=== PATIENT | female | born 1960 | race Caucasian/White ===

== ENCOUNTER 2018-09-07 20:16 | Emergency (ER) | payer SELFPAY ==
[2018-09-07 21:03] LABS: ABSOLUTE BASOPHILS # (AUTO) 0.1 10^3/uL (0.0-0.2); ABSOLUTE EOSINOPHILS # (AUTO) 0.1 10^3/uL (0.0-0.6); ABSOLUTE LYMPHOCYTES (AUTO) 2.1 10^3/uL (0.5-4.7); ABSOLUTE MONOCYTES (AUTO) 0.9 10^3/uL (0.1-1.4); ABSOLUTE NEUT (AUTO) 7.2 10^3/uL (1.7-8.2); BASOPHILS % (AUTO) 0.5 % (0-2); EOSINOPHILS % (AUTO) 0.9 % (0-6); HEMATOCRIT 41.3 % (36.0-47.0); HEMOGLOBIN 14.2 g/dL (12.0-15.5); LYMPHOCYTES % (AUTO) 20.5 % (13-45); MEAN CORPUSCULAR HEMOGLOBIN 31.9 pg (27.0-33.4); MEAN CORPUSCULAR HGB CONC 34.3 g/dL (32.0-36.0); MEAN CORPUSCULAR VOLUME 93 fl (80-97); MONOCYTES % (AUTO) 8.5 % (3-13); PLATELET COUNT 307 10^3/uL (150-450); RED BLOOD COUNT 4.45 10^6/uL (3.72-5.28); RED CELL DISTRIBUTION WIDTH 14.3 % (11.5-14.0); SEGMENTED NEUTROPHILS % (AUTO) 69.6 % (42-78); TOTAL CELLS COUNTED % (AUTO) 100 %; WHITE BLOOD COUNT 10.4 10^3/uL (4.0-10.5)
[2018-09-07 21:21] LABS: ALANINE AMINOTRANSFERASE 20 U/L (9-52); ALBUMIN 4.1 g/dL (3.5-5.0); ALKALINE PHOSPHATASE 60 U/L (38-126); ANION GAP 15 (5-19); ASPARTATE AMINO TRANSFERASE 22 U/L (14-36); BILIRUBIN,DIRECT 0.2 mg/dL (0.0-0.4); BILIRUBIN,TOTAL 0.2 mg/dL (0.2-1.3); BLOOD UREA NITROGEN 15 mg/dL (7-20); CALCIUM 9.2 mg/dL (8.4-10.2); CARBON DIOXIDE 26 mmol/L (22-30); CHLORIDE 98 mmol/L (98-107); GLUCOSE 86 mg/dL (75-110); LIPASE 256.2 U/L (23-300); POTASSIUM 4.5 mmol/L (3.6-5.0); SODIUM 139.4 mmol/L (137-145); TOTAL PROTEIN 6.6 g/dL (6.3-8.2)
[2018-09-07] MEDS ORDERED: HYOSCYAMINE SULFATE 0.125 MG TABLET PO ONE (22:04)
--- NOTE | 2018-09-07 22:05 | ER Document Report ---
ED General - General Chief Complaint: Abdominal Pain Stated Complaint: ABDOMINAL PAIN Time Seen by Provider: 09/07/18 20:41 Notes: Patient is a 58-year-old female with a past medical history of opiate dependence for chronic low back pain who presents with 12 hours of intermittent generalized abdominal cramping, one episode of vomiting, and 5 days of not having a bowel movement. She does report that she continues to pass flatus. She reports that she has been able to tolerate oral intake even after the single episode of vomiting. Denies any feculent vomiting. She states that the pain comes in waves and when it is present that it is a severe, cramping, generalized abdominal pain. Nothing seems to trigger the pain and it does resolve spontaneously. She is uncertain of whether or not she has ever had similar symptoms in the past. She has not contacted her general doctor regarding today's concerns. She denies any associated fever or constitutional symptoms. Only prior abdominal surgical history is a . She denies any current pain at the time my assessment. Patient's does report that today she had a syncopal episode while trying to have a bowel movement. Patient denies any history of cardiac disease. Denies any current chest pain or shortness of breath. States that she has had syncope many times in the past when attempting to have bowel movements or from pain. TRAVEL OUTSIDE OF THE [place] IN LAST 30 DAYS: No - Related Data Allergies/Adverse Reactions: No Known Allergies Allergy (Unverified 09/07/18 20:25) Past Medical History - General Information source: Patient, Relative - Social History Smoking Status: Current Every Day Smoker Frequency of alcohol use: Occasional Drug Abuse: None Lives with: Spouse/Significant other Family History: Reviewed & Not Pertinent Patient has suicidal ideation: No Patient has homicidal ideation: No - Past Medical History Cardiac Medical History: Reports: Hx Hypertension Renal/ Medical History: Denies: Hx Peritoneal Dialysis Past Surgical History: Reports: Hx Section, Hx Tonsillectomy Review of Systems - Review of Systems Notes: Constitutional: Negative for fever. HENT: Negative for sore throat. Eyes: Negative for visual changes. Cardiovascular: Negative for chest pain. Respiratory: Negative for shortness of breath. Gastrointestinal: Positive for abdominal pain, constipation and vomiting Genitourinary: Negative for dysuria. Musculoskeletal: Negative for back pain. Skin: Negative for rash. Neurological: Negative for headaches, weakness or numbness. 10 point ROS negative except as marked above and in HPI. Physical Exam - Vital signs Vitals: Pulse 94 09/07/18 20:21 Interpretation: Normal Notes: PHYSICAL EXAMINATION: GENERAL: Well-appearing, well-nourished and in no acute distress. HEAD: Atraumatic, normocephalic. EYES: Pupils equal round and reactive to light, extraocular movements intact, sclera anicteric, conjunctiva are normal. ENT: nares patent, oropharynx clear without exudates. Moderately dry mucous membranes. NECK: Normal range of motion, supple without lymphadenopathy LUNGS: Breath sounds clear to auscultation bilaterally and equal. No wheezes rales or rhonchi. HEART: Regular rate and rhythm without murmurs ABDOMEN: Soft, nontender, normoactive bowel sounds. No guarding, no rebound. No masses appreciated. EXTREMITIES: Normal range of motion, no pitting or edema. No cyanosis. NEUROLOGICAL: No focal neurological deficits. Moves all extremities spontaneously and on command. PSYCH: Normal mood, normal affect. SKIN: Warm, Dry, normal turgor, no rashes or lesions noted. Course - Re-evaluation Re-evalutation: 09/07/18 22:04 Patient presents with generalized abdominal pain with associated intermittent periods of waves of spasming pain. She has had one episode of vomiting today. Apparently she did have a episode of syncope while trying to have a bowel movement earlier which appears to be consistent with a vasovagal syncope. Troponin and EKG unremarkable. Labs are broadly unremarkable. Patient is on chronic pain management with narcotic therapy. She has not had a bowel movement in over [address] abdomen pelvis given the patient's report of associated syncope as well as having minimal flatus today to further exclude an acute bowel obstruction. Anticipate that patient most likely has severe constipation secondary to opiates. 09/07/18 22:[address] scan. Is agreeable to a 2 view of the abdomen. We will proceed with a 2 view of the abdomen. 09/07/18 23:40 2 view the abdomen shows possible ileus likely secondary to patient's opiate use. The patient has tolerated oral intake without difficulty here. Is, currently resting very comfortably. Continues to state that she would like to avoid a CT due to the risk of radiation and her low suspicion for anything being seriously wrong with her. She understands that we could be missing a possibly serious diagnosis. She verbalizes understanding of the risks of this. I have advised that she is to return to the emergency department immediately if she has worsening of her abdominal pain, persistent vomiting, develops a fever, has failure of her symptoms resolved, or has any other symptoms that are concerning. She is to follow-up with her primary care doctor for an abdominal recheck within the next 24-48 hours. - Vital Signs Vital signs: Temp Pulse Resp BP Pulse Ox 98.4 F 84 18 110/76 99 09/08/18 00:03 09/08/18 00:04 09/08/18 00:04 09/08/18 00:04 09/08/18 00:04 - Laboratory Result Diagrams: 09/07/18 20:55 09/07/18 20:55 Laboratory results interpreted by me: 09/07/18 20:55 RDW 14.3 H - Diagnostic Test Radiology reviewed: Image reviewed, Reports reviewed Radiology results interpreted by me: 09/07/18 23:42 2 view abdomen: Heavy colonic stool burden, possible ileus pattern Discharge - Discharge Clinical Impression: Generalized abdominal pain Constipation Qualifiers: Constipation type: drug induced constipation Qualified Code(s): K59.03 - Drug induced constipation Condition: Good Disposition: HOME, SELF-CARE Additional Instructions: As we discussed today, your symptoms are likely related to constipation and use of opiate therapy. You need to follow-up with your primary care doctor within the next 24 hours for recheck of your abdomen. Please return to the emergency permit immediately he developed fever of greater than 100.4 F, worsening abdominal pain, failure pain to improve, persistent vomiting, or any other symptoms that are worrisome to you. For your constipation: You should take 8 caps of MiraLAX and placed in 1 liter of Gatorade. Drink one half of the solution and wait 4 hours. If you do not have a bowel movement take the remaining half of the solution. Prescriptions: Hyoscyamine Sulfate [Levsin 0.125 Tablet] 0.125 mg PO TID PRN #30 tablet PRN Reason: Referrals: LAUREL AYON, OSIRISC [Primary Care Provider] - Follow up tomorrow
--- NOTE | 2018-09-07 22:42 | RADIOLOGY REPORT (SQ) ---
EXAM DESCRIPTION: XR ABDOMEN 2 VIEWS SUPINE ERECT COMPLETED DATE/TME: 09/07/2018 22:10 CLINICAL HISTORY: 58 years, Female, eval obstruction COMPARISON: None. NUMBER OF VIEWS: 2 TECHNIQUE: Supine and erect views of the abdomen LIMITATIONS: None. FINDINGS: The bowel gas pattern is nonspecific. Nondilated air-fluid levels are present. Levoconvex scoliosis of the lumbar spine. No free air under the hemidiaphragms. Osteopenia IMPRESSION: Nonspecific bowel gas pattern. A few air-fluid levels could reflect mild ileus 2010 [employer]- All Rights Reserved
[2018-09-07] MEDS ORDERED: HYOSCYAMINE SULFATE 0.125 MG TABLET ONE (22:55)
[2018-09-07] MEDS ORDERED: LACTULOSE SYRUP 20 GM/30 ML UDCUP PO ONE (23:25)
[2018-09-08 00:05] VITALS: BP 110/76
== END 2018-09-08 00:04 | disposition home or self-care (01) ==
LOC: ER 20:16
DX: K59.03 Drug induced constipation (principal); R10.84 Generalized abdominal pain; R11.10 Vomiting, unspecified; R55 Syncope and collapse; F17.200 Nicotine dependence, unspecified, uncomplicated; G89.29 Other chronic pain; M54.5 Low back pain; I10 Essential (primary) hypertension
CPT/HCPCS: 99284; 36415; 83690; 85025; 80053; 84484; 74019; J3490

== ENCOUNTER 2019-10-01 13:35 | Emergency (ER) | payer MEDICAID ==
[2019-10-01 13:54] LABS: ABSOLUTE EOSINOPHILS # (AUTO) 0.1 10^3/uL (0.0-0.6); ABSOLUTE LYMPHOCYTES (AUTO) 1.6 10^3/uL (0.5-4.7); ABSOLUTE MONOCYTES (AUTO) 0.2 10^3/uL (0.1-1.4); ABSOLUTE NEUT (AUTO) 1.3 10^3/uL (1.7-8.2); BASOPHILS % (AUTO) 0.8 % (0-2); EOSINOPHILS % (AUTO) 2.5 % (0-6); HEMATOCRIT 41.3 % (36.0-47.0); HEMOGLOBIN 14.1 g/dL (12.0-15.5); MEAN CORPUSCULAR HEMOGLOBIN 31.4 pg (27.0-33.4); MEAN CORPUSCULAR HGB CONC 34.2 g/dL (32.0-36.0); MEAN CORPUSCULAR VOLUME 92 fl (80-97); MONOCYTES % (AUTO) 7.4 % (3-13); PLATELET COUNT 308 10^3/uL (150-450); RED BLOOD COUNT 4.49 10^6/uL (3.72-5.28); SEGMENTED NEUTROPHILS % (AUTO) 40.3 % (42-78); TOTAL CELLS COUNTED % (AUTO) 100 %; WHITE BLOOD COUNT 3.3 10^3/uL (4.0-10.5)
[2019-10-01 14:16] LABS: ALBUMIN 4.5 g/dL (3.5-5.0); ALKALINE PHOSPHATASE 88 U/L (38-126); ANION GAP 14 (5-19); ASPARTATE AMINO TRANSFERASE 24 U/L (14-36); BILIRUBIN,DIRECT 0.2 mg/dL (0.0-0.4); BILIRUBIN,TOTAL 0.3 mg/dL (0.2-1.3); BLOOD UREA NITROGEN 7 mg/dL (7-20); CALCIUM 9.8 mg/dL (8.4-10.2); CARBON DIOXIDE 28 mmol/L (22-30); CHLORIDE 97 mmol/L (98-107); CREATINE KINASE 63 U/L (30-135); GLUCOSE 144 mg/dL (75-110); POTASSIUM 3.8 mmol/L (3.6-5.0); TOTAL PROTEIN 7.7 g/dL (6.3-8.2)
[2019-10-01 14:24] LABS: CREATINE KINASE MB 0.47 ng/mL (<4.55)
[2019-10-01 14:24] LABS: APPEARANCE,URINE CLEAR; BILIRUBIN,URINE NEGATIVE (NEGATIVE); COLOR,URINE YELLOW; GLUCOSE, URINE NEGATIVE (NEGATIVE); KETONES,URINE NEGATIVE (NEGATIVE); LEUKOCYTE ESTERASE,URINE NEGATIVE (NEGATIVE); NITRITE,URINE NEGATIVE (NEGATIVE); PROTEIN,URINE NEGATIVE (NEGATIVE); URINE SPECIFIC GRAVITY 1.006; UROBILINOGEN,URINE NEGATIVE mg/dL (<2.0)
[2019-10-01 14:27] LABS: TROPONIN I < 0.012 ng/mL
--- NOTE | 2019-10-01 14:40 | RADIOLOGY REPORT (SQ) ---
EXAM DESCRIPTION: CHEST SINGLE VIEW COMPLETED DATE/TIME: 10/01/2019 2:22 pm REASON FOR STUDY: chest pain COMPARISON: None. EXAM PARAMETERS: NUMBER OF VIEWS: One view. TECHNIQUE: Single frontal radiographic view of the chest acquired. RADIATION DOSE: NA LIMITATIONS: Portable film, slightly rotated toward the HANEY position FINDINGS: LUNGS AND PLEURA: No opacities, masses or pneumothorax. No pleural effusion. MEDIASTINUM AND HILAR STRUCTURES: No masses. Contour normal. HEART AND VASCULAR STRUCTURES: Heart normal in size. Normal vasculature. BONES: No acute findings. HARDWARE: None in the chest. OTHER: No other significant finding. IMPRESSION: NO ACUTE RADIOGRAPHIC FINDING IN THE CHEST. TECHNICAL DOCUMENTATION: JOB ID: [id number] [employer]- All Rights Reserved Reading location - IP/workstation name: [email or web address]
[2019-10-01 15:18] LABS: URINE AMPHETAMINES SCREEN NEGATIVE; URINE BARBITURATES SCREEN NEGATIVE; URINE BENZODIAZEPINES SCREEN NEGATIVE; URINE COCAINE SCREEN NEGATIVE; URINE MARIJUANA (THC) SCREEN NEGATIVE; URINE METHADONE SCREEN NEGATIVE; URINE PHENCYCLIDINE SCREEN NEGATIVE
[2019-10-01] MEDS ORDERED: NITROGLYCERIN 0.4 MG/TAB 25 TAB/BOTTLE SL PRN (15:21)
[2019-10-01] MEDS ORDERED: LORAZEPAM 0.5 MG TABLET PO ONE (15:21)
--- NOTE | 2019-10-01 17:48 | EKG REPORT ---
SEVERITY:- BORDERLINE ECG - SINUS RHYTHM PROBABLE LEFT ATRIAL ABNORMALITY BORDERLINE T ABNORMALITIES, ANT-LAT LEADS : Confirmed by: Chalino Ribeiro MD 01-Oct-2019 17:47:11
--- NOTE | 2019-10-01 18:56 | ER Document Report ---
ED General - General Chief Complaint: Chest Pain Stated Complaint: CHEST PAIN Primary Care Provider: LAUREL AYON FNP-C [Primary Care Provider] - Follow up as needed TRAVEL OUTSIDE OF THE [place] IN LAST 30 DAYS: No - HPI Notes: Nurses asked me to see patient when she was roomed in bed 10 in the ED, to ensure she was stable and had appropriate work-up and management started. She tells me she had onset of pain hours ago in the middle of her chest with feeling like she is breathing very fast and sensing a fast heart rate. She seemed to be getting better after she took 325 of aspirin earlier today, but it came back while she was at rest so she called EMS and then took 325 of aspirin again before they arrived. This morning and then again before EMS arrived she said. She tells me she has no history of DM, kidney disease, heart attack, or heart failure, or surgeries for her heart or lungs. She says they did not give her any other medicines and the ambulance. Tells me she has never been a smoker, has never used cocaine or methamphetamines or drug or history of those drugs. Denies alcohol use. Says she has been taking her 1 medication for high blood pressure without any lapses, and took it today earlier. She tells me she has not had any fevers or chills or sweats no vomiting, no (n ear) passing out. She has been eating okay. No trouble swallowing. - Related Data Allergies/Adverse Reactions: No Known Allergies Allergy (Unverified 09/07/18 20:25) Home Medications: lisinopril. oxycodone Past Medical History - General Information source: Patient - Social History Smoking Status: Never Smoker Frequency of alcohol use: None Drug Abuse: None Family History: Other - Did not ask this question in initial interview with patient, and was unable to before she eloped prior to final disposition. Patient has suicidal ideation: No Patient has homicidal ideation: No - Past Medical History Cardiac Medical History: Reports: Hx Hypertension Renal/ Medical History: Denies: Hx Peritoneal Dialysis Past Surgical History: Reports: Hx Section, Hx Tonsillectomy Review of Systems - Review of Systems Constitutional: See HPI, Other - Beyond the above negative constitutional ROS did not perform any further ROS prior to patient eloping before I talked to her again after initially interviewing. denies: Chills, Fever EENT: Other - Did not perform an ENT ROS prior to patient eloping before I talked to her again after initially interviewing patient. denies: Throat pain, Difficulty swallowing Cardiovascular: See HPI, Chest pain, Palpitations, Heart racing, Dyspnea. padmini es: Orthopnea, Syncope, Paroxysmal Nocturnal Dysp Respiratory: Other - besides pertinent negatives noted here I obtained initially, but see did not perform a complete respiratory ROS prior to patient eloping before I talked to her again after initially interviewing. denies: Hurts to breathe, Hemoptysis, Sputum Gastrointestinal: Other - Other than above pertinent negatives initially obtained, did not perform a complete GI ROS prior to patient eloping before I talked to her again after initially interviewing. denies: Abdominal pain, Nausea, Vomiting, Poor appetite, Poor fluid intake Genitourinary: Other - Did not perform a ROS prior to patient eloping before I talked to her again after initially interviewing Female Genitourinary: Other - Did not perform a ROS prior to patient eloping before I talked to her again after initially interviewing Musculoskeletal: Other - Did not perform a MSK ROS prior to patient eloping before I talked to her again after initially interviewing Skin: Other - Did not perform a skin ROS prior to patient eloping before I talked to her again after initially interviewing Hematologic/Lymphatic: Other - Did not evaluate if she required and therefore did not perform a heme ROS prior to patient eloping before I talked to her again after initially interviewing Neurological/Psychological: Other - Did not perform a full neuro ROS prior to patient eloping before I talked to her again after initially interviewing Physical Exam - Vital signs Interpretation: Normal, Tachycardic - 111 regular on monitor. No: Hypotensive, Hypoxic, Tachypneic - Notes Notes: Patient was talking to me in full sentences on room air she had no hypoxia but was mildly tachycardic 111 but did not have any respiratory distress. - General General appearance: Alert, Anxious In distress: None - HEENT Head: Normocephalic, Atraumatic Eyes: Normal. No: Pale conjunctiva, Scleral icterus Conjunctiva: No: Injected Extraocular movements intact: Yes Eyelashes: Normal Pupils: PERRL Nasal: No: Bloody discharge, Marimar deformity, Ecchymosis, Swelling, Clear rhinorrhea Mouth/Lips: No: Laceration, Lesions Mucous membranes: Dry Pharynx: No: Erythema, Exudate, Tonsillar hypertrophy, Uvular edema Neck: Supple. No: Meningismus, Neck mass - Respiratory Respiratory status: No respiratory distress. No: Agonal respirations, Cyanosis, Depressed respirations, Labored, Pursed lip breathing, Retractions, Tachypnea, Tripod position Chest status: Tender. No: Ecchymosis, Pain with deep breathing, Wounds, Accessory muscle use, Prolonged expirations, Splinting Breath sounds: Normal. No: Decreased air movement - Auscultated bilateral posterior and upper lung barnett symmetric good movement of air and no W/R/R or focality of any absence or decreased breath sounds. Chest palpation: Normal. No: Ecchymosis, Wounds - Cardiovascular Rhythm: Tachycardia. No: Irregularly irregular, Extrasystoles Heart sounds: Normal auscultation - Quite precordium Murmur: No Pulses: Normal: Radial - All EXT WWP X4 Normal capillary refill: No - Abdominal Inspection: Normal. No: Caput medussa, Wounds, Obese Distension: No distension. No: Tympanitic, Distended bladder Bowel sounds: Normal Tenderness: Nontender. No: McBurney's point, Curran's sign, Guarding, Rebound Organomegaly: No organomegaly - Back Back: Normal, Nontender. No: Deformity/step-off, CVA tenderness, Vertebra tenderness, Wounds - Extremities General upper extremity: Normal inspection, Nontender, Normal color, Normal ROM, Normal temperature General lower extremity: Normal inspection, Nontender, Normal color, Normal ROM, Normal temperature Shoulder: No: Tender, Abrasion, Limited ROM Calf: Nontender. No: Deformity, Ecchymosis - Neurological Neuro grossly intact: Yes Cognition: Normal Orientation: AAOx4 Lucia Coma Scale Eye Opening: Spontaneous Ophelia Coma Scale Verbal: None - Answering questions appropriately able to tell linear story about symptoms. Ophelia Coma Scale Motor: Obeys Commands Lucia Coma Scale Total: 11 Speech: Normal Cranial nerves: Normal Cerebellar coordination: Other - Sitting upright without any difficulty moving all extremities with intention Additional motor exam normals: Other - Moving all extremities with intention moving herself in bed to sit up - Psychological Associated symptoms: Normal affect, Normal mood - Skin Skin Temperature: Warm Skin Moisture: Dry Skin Color: Normal Course - Re-evaluation Re-evalutation: 10/01/19 22:00 I did review patient's twelve-lead EKG and initial labs including initial troponin which was within normal limits. She had a chest x-ray ordered I had not yet reviewed that, and had not yet been able to do a second assessment of patient since I was tied up with a few other pediatric patients. Nurses did alert me that she was discussing wanting to call And leave they reportedly informed her that I was coming as soon as I could finish with my current patient and finish a procedure I was in the middle of. When I brushed in the, she had already walked outside to get in the cab and had left. Now as I am documenting the events of her time here in the emergency department while on the diagnostic cardiac sonographer and with the work-up initially started and returned I see there are no vital signs recorded by nursing staff. I was aware though of her vitals again when I initially saw her and she was roomed and throughout the hours she was here checked a few times to see that her heart rate had improved and she still had no hypoxia on room air and her blood pressure was WNL. 10/01/19 22:05 10/01/19 22:08 I also retrospectively see on chart review that her second troponin remained negative. 10/01/19 22:11 Also retrospectively on chart review reviewed her 1 view chest x-ray and remembered that I had reviewed that after it was initially done I see no definite acute cardiopulmonary process on this 1 view film. Now retrospectively I am also looking at a prior upright abdomen film which shows bilateral lung bases of her lungs, diaphragm with provider provider but a few times overall and left diaphragmatic and heart borders which appear unchanged to today's film. - Laboratory Result Diagrams: 10/01/19 13:06 10/01/19 13:06 Laboratory results interpreted by me: 10/01/19 10/01/19 13:06 13:06 WBC 3.3 L Lymph % (Auto) 49.0 H Absolute Neuts (auto) 1.3 L Seg Neutrophils % 40.3 L Chloride 97 L Glucose 144 H - EKG Interpretation by Ca EKG shows normal: Sinus rhythm - Rate 70s. No ST elevations or depressions. Voltage within normal limits axis within normal limit no evidence of LVH. No prolongation or other derangements of QRS or other intervals. No other aberrant conductions. When compared to previous EKG there are: Other - After patient eloped prior to my making plan and reassessment of her symptoms, reviewed prior rhythm strip from August which compared to today's 12-lead does not show any changes in these leads. Discharge - Discharge Clinical Impression: Chest pain, Tachycardia determined by examination of pulse, Eloped from emergency department Condition: Fair Disposition: ELOPED Referrals: LAUREL AYON FNP-C [Primary Care Provider] - Follow up as needed
== END 2019-10-01 18:25 | disposition left against medical advice (07) ==
LOC: ER 13:35
DX: R07.9 Chest pain, unspecified (principal); R00.0 Tachycardia, unspecified; I10 Essential (primary) hypertension
CPT/HCPCS: 93005; 36415; 82553; 82550; 85025; 80053; 81001; 84484; 80307; 71045; 93010; J3490; 99281